=== PATIENT | male | born 1955 | race Asian ===

== ENCOUNTER 2023-02-12 18:49 | Emergency (ER) | payer MEDICARE, OTHER ==
[~2023-02-12] VITALS: Ht 160 cm; Wt 61.2 kg
[2023-02-12 19:07] VITALS: BP_SYST 123; PULSE 70; RESP 20; TEMP 98.6; O2SAT 98
[2023-02-12 19:31] VITALS: BP_SYST 123; PULSE 70; RESP 20; TEMP 98.6; O2SAT 98
== END 2023-02-12 19:31 ==
LOC: SED 18:49
DX: Z02.89 Encounter for other administrative examinations (principal); I10 Essential (primary) hypertension; E11.9 Type 2 diabetes mellitus without complications; Z79.899 Other long term (current) drug therapy
CPT/HCPCS: 82962; 99283